=== PATIENT | female | born 1940 | race Caucasian/White ===

== ENCOUNTER 2017-11-19 16:34 | Emergency (ER) | payer MEDICARE ==
[~2017-11-19] VITALS: Ht 170.2 cm; Wt 90.7 kg
[~2017-11-19 16:34] MED LIST: ALBU90OI6 INH; AMLO10 PO; BENA20 PO; BENAML10/40 PO; CARV6.25 PO; CHOL10002 PO; CYAN1000 PO; DULO30 PO; DULO60 PO; FISH1000 PO; FLUSAL2505 INH; FOLI1 PO; GLIM2 PO; HYDCHL25 PO; HYDMOR2 PO; HYDROCHLORATHIAZIDE; METF500 PO; NITR.4SL SL; OMEP20ER PO; OXYC10ER PO; OXYC15ER PO; OXYC20ER; OXYC5; OXYC5 PO; Oxycodone HCl20 M1 PO; PIOG30 PO; PRAV20 PO; PREG75 PO; Percocet 5-3251 EACH PO; [UNRECOGNIZED DRUG - OTHER]; [UNRECOGNIZED DRUG - REMARK]; [UNRECOGNIZED DRUG - REMARK]; [UNRECOGNIZED DRUG - REMARK]; [UNRECOGNIZED DRUG - REMARK]
[2017-11-19] MEDS ORDERED: ASPI81CH PO (16:41)
[2017-11-19] MEDS ORDERED: Lotensin40 MG PO (16:41)
[2017-11-19] MEDS ORDERED: AMLO5 PO (16:41)
[2017-11-19] MEDS ORDERED: CARV3.125 PO (16:42)
[2017-11-19] MEDS ORDERED: SITA50T2 PO (16:42)
[2017-11-19] MEDS ORDERED: ALBU90OI61 INH (16:42)
[2017-11-19] MEDS ORDERED: Magnesium500 M1 PO (16:42)
[2017-11-19] MEDS ORDERED: HYDCHL25 PO (16:42)
[2017-11-19] MEDS ORDERED: SERT50 PO (16:43)
[2017-11-19] MEDS ORDERED: CHOL10002 PO (16:46)
[2017-11-19] MEDS ORDERED: Voltaren100 GM TOP (16:47)
[2017-11-19] MEDS ORDERED: VITAMIN B122500 MC1 PO (16:47)
[2017-11-19] MEDS ORDERED: TOCO1000 PO (16:48)
[2017-11-19] MEDS ORDERED: FOLI400 PO (16:48)
[2017-11-19 17:24] LABS: BASOPHILS ABSOLUTE AUTO 0.04 K/mm3 (0.00-0.23); BASOPHILS PERCENT AUTO 1 % (0-2); EOSINOPHILS ABSOLUTE AUTO 0.19 K/mm3 (0.00-0.68); EOSINOPHILS PERCENT AUTO 3 % (0-6); Hematocrit 37.7 % (33.0-51.0); Hemoglobin 11.7 g/dL (11.5-16.0); IMMATURE GRAN ABSOLUTE AUTO 0.03 K/mm3 (0.00-0.10); IMMATURE GRAN PERCENT AUTO 0 % (0-1); LYMPHOCYTES ABSOLUTE AUTO 2.06 K/mm3 (0.84-5.20); LYMPHOCYTES PERCENT AUTO 28 % (21-46); MONOCYTES ABSOLUTE AUTO 0.65 K/mm3 (0.16-1.47); MONOCYTES PERCENT AUTO 9 % (4-13); Mean Corpuscular HGB 25.9 pg (26.0-34.0); Mean Corpuscular Volume 83 fL (80-100); Mean Platelet Volume 10.9 fL (9.1-12.4); NEUTROPHILS ABSOLUTE AUTO 4.47 K/mm3 (1.96-9.15); NEUTROPHILS PERCENT AUTO 60 % (41-73); Platelet Count 187 K/mm3 (150-400); RDW Coefficient Variation 14.4 % (11.7-14.2); RDW Standard Deviation 43.8 fL (35.1-46.3); Red Blood Cell Count 4.52 M/mm3 (3.80-5.20); White Blood Cell Count 7.44 K/mm3 (4.00-11.30)
[2017-11-19 17:48] LABS: Alanine Aminotransfer (ALT/SGP 43 U/L (12-78); Albumin, Blood 3.2 g/dL (3.4-5.0); Albumin/Globulin Ratio 0.8 (0.8-1.8); Alk Phos 67 U/L (50-136); Anion Gap 9 mmol/L (6-16); Aspartate Aminotrans (AST/SGOT 51 U/L (12-37); Bilirubin, Total 0.5 mg/dL (0.1-1.0); Blood Urea Nitrogen 21 mg/dL (8-24); Bun/Creatinine Ratio 26.2 (12.0-20.0); CO2, Blood 23 mmol/L (21-32); Calcium, Blood 8.7 mg/dL (8.5-10.1); Chloride, Blood 99 mmol/L (98-108); Globulin, Blood 3.8 g/dL (2.2-4.0); Glomerular Filtration Rate >60 (60-); Glucose, Blood 378 mg/dL (70-99); Potassium, Blood 4.2 mmol/L (3.5-5.5); Sodium, Blood 131 mmol/L (136-145)
[2017-11-19 18:37] LABS: Bicarbonate Venous 25.1 mmol/L (24.0-30.0); PCO2 Venous 43.4 mmHg (38-42); PO2 Venous 121 mmHg (38-42); pH Blood Venous 7.39 (7.34-7.37)
== END 2017-11-19 18:43 | disposition home or self-care (01) ==
LOC: ER 16:34
PROVIDERS: Emergency Medicine
DX: E11.65 Type 2 diabetes mellitus with hyperglycemia (principal); Z79.82 Long term (current) use of aspirin; Z79.899 Other long term (current) drug therapy
CPT/HCPCS: 36415; 80053; 82803; 82947; 83690; 85025; 93005; 93010; 99283; J7030

== ENCOUNTER → 2018-12-20 | Outpatient (CLI) | payer MEDICARE ==
[~2018-12-20] MED LIST changes: +ALBU90OI61 INH; +AMLO5 PO; +ASPI81CH PO; +CARV3.125 PO; +FOLI400 PO; +Lotensin40 MG PO; +Magnesium500 M1 PO; +SERT50 PO; +SITA50T2 PO; +TOCO1000 PO; +VITAMIN B122500 MC1 PO; +Voltaren100 GM TOP
[2018-12-20 12:50] LABS: Creatinine, Urine Random 56.9 mg/dL (27.00-270.00)
[2018-12-20 12:53] LABS: Microalb/Creat Ratio UR, Rand 32.162 mg/g (0.000-30.000); Microalbumin, Random Urine 18.3 mg/L (0.000-20.000)
== END | disposition home or self-care (01) ==
LOC: LAB 08:41 → LAB SHORT 08:41
PROVIDERS: Family Medicine
DX: E78.5 Hyperlipidemia, unspecified (principal); I10 Essential (primary) hypertension
CPT/HCPCS: 82043; 82570

== ENCOUNTER 2020-11-25 06:43 | Day surgery (SDC) | payer MEDICARE ==
[~2020-11-25] VITALS: Ht 170.2 cm; Wt 88.5 kg
[~2020-11-25 06:43] MED LIST changes: +Aspir 8181 MG PO; +META800 PO
[2020-11-25] MEDS ORDERED: GABA300 PO (07:41)
[2020-11-25] MEDS ORDERED: TRULICITY1.5 MG/0.1 (07:42)
[2020-11-25] MEDS ORDERED: ZOCOR20 MG PO (07:42)
[2020-11-25] MEDS ORDERED: JARDIANCE10 MG PO (07:42)
== END 2020-11-25 08:45 | disposition home or self-care (01) ==
LOC: ORSCSDS 06:43
PROVIDERS: Ophthalmology
PROC: 08RK3JZ Replacement of Left Lens with Synthetic Substitute, Percutaneous Approach (ICD-10-PCS; principal; 2020-11-25 08:00)
DX: H25.12 Age-related nuclear cataract, left eye (principal); I10 Essential (primary) hypertension; J44.9 Chronic obstructive pulmonary disease, unspecified; E11.9 Type 2 diabetes mellitus without complications; Z79.899 Other long term (current) drug therapy
CPT/HCPCS: 82947; A9270; J2001; J2250; J3010; J3301; J7040; V2632

== ENCOUNTER → 2022-03-09 | Outpatient (CLI) | payer MEDICARE ==
[~2022-03-09] MED LIST changes: +GABA300 PO; +JARDIANCE10 MG PO; +TRULICITY1.5 MG/0.1; +ZOCOR20 MG PO
== END | disposition home or self-care (01) ==
LOC: LAB 10:40 → LAB SHORT 10:40
DX: N76.0 Acute vaginitis (principal)
CPT/HCPCS: 87070; 87077; 87086; 87106; 87186; 87205

== ENCOUNTER 2022-10-17 12:56 | Day surgery (SDC) | payer MEDICARE ==
[~2022-10-17] VITALS: Ht 170.2 cm; Wt 80.2 kg
[2022-10-17] MEDS ORDERED: LOSA50 PO (13:41)
[2022-10-17] MEDS ORDERED: MAGCIT300 PO (13:41)
== END 2022-10-17 15:45 | disposition home or self-care (01) ==
LOC: ORSCSDS 12:56
PROVIDERS: Internal Medicine Gastroenterology
PROC: 0DBC8ZX Excision of Ileocecal Valve, Via Natural or Artificial Opening Endoscopic, Diagnostic (ICD-10-PCS; principal; 2022-10-17 14:15)
PROC: 0DBK8ZX Excision of Ascending Colon, Via Natural or Artificial Opening Endoscopic, Diagnostic (ICD-10-PCS; principal; 2022-10-17 14:15)
PROC: 0DBN8ZX Excision of Sigmoid Colon, Via Natural or Artificial Opening Endoscopic, Diagnostic (ICD-10-PCS; principal; 2022-10-17 14:15)
DX: Z12.11 Encounter for screening for malignant neoplasm of colon (principal); Z86.010 Personal history of colon polyps; D12.0 Benign neoplasm of cecum; D12.2 Benign neoplasm of ascending colon; D12.5 Benign neoplasm of sigmoid colon; N81.6 Rectocele; K57.30 Diverticulosis of large intestine without perforation or abscess without bleeding; K52.9 Noninfective gastroenteritis and colitis, unspecified; E11.9 Type 2 diabetes mellitus without complications; Z99.81 Dependence on supplemental oxygen; Z79.82 Long term (current) use of aspirin; Z79.84 Long term (current) use of oral hypoglycemic drugs; Z79.85 Long-term (current) use of injectable non-insulin antidiabetic drugs; Z79.899 Other long term (current) drug therapy
CPT/HCPCS: 82947; 88305; J2704; J7120

== ENCOUNTER 2024-01-08 05:48 | Emergency (ER) | payer MEDICARE ==
[~2024-01-08] VITALS: Ht 170.2 cm; Wt 81.7 kg
[2024-01-08 12:10] VITALS: BP 98/64
== END 2024-01-08 12:13 | disposition home or self-care (01) ==
LOC: ER 05:48
DX: S80.02XA Contusion of left knee, initial encounter (principal); M25.552 Pain in left hip; I10 Essential (primary) hypertension; E11.9 Type 2 diabetes mellitus without complications; W31.9XXA Contact with unspecified machinery, initial encounter; Z87.891 Personal history of nicotine dependence; Z79.82 Long term (current) use of aspirin; Z79.899 Other long term (current) drug therapy; Z88.8 Allergy status to other drugs, medicaments and biological substances

== ENCOUNTER → 2024-02-08 | Outpatient (CLI) | payer MEDICARE ==
[~2024-02-08] MED LIST changes: +LOSA50 PO; +MAGCIT300 PO; +Morphine Sulfat15 MG PO; +ONDA4ODT MM
[2024-02-08 16:43] LABS: Albumin, Blood 3.8 g/dL (3.4-5.0); Albumin/Globulin Ratio 0.9 (0.8-1.8); Bilirubin, Total 0.6 mg/dL (0.1-1.0); Bun/Creatinine Ratio 11.4 (12.0-20.0); Calcium, Blood 9.3 mg/dL (8.5-10.1); Creatinine, Blood 1.75 mg/dL (0.40-1.00); Globulin, Blood 4.2 g/dL (2.2-4.0); Potassium, Blood 3.8 mmol/L (3.5-5.5)
== END | disposition home or self-care (01) ==
LOC: LAB 15:46 → LAB SHORT 15:46
PROVIDERS: Family Medicine
DX: N17.9 Acute kidney failure, unspecified (principal); N18.9 Chronic kidney disease, unspecified
CPT/HCPCS: 36415; 80053

== ENCOUNTER → 2024-03-14 | Outpatient (CLI) | payer MEDICARE ==
[2024-03-14 08:55] LABS: Source, Urine Voided
[2024-03-14 09:56] LABS: Appearance, Urine Hazy (Clear); Bilirubin, Urine Neg (Neg); Blood, Urine Neg (Neg); Color, Urine Yellow (P-Yellow); Glucose Qualitative, Urine 4+ (Neg); Ketones, Urine Neg (Neg); Leukocyte Esterase, Urine Neg (Neg); Nitrite, Urine Neg (Neg); Protein, Urine Neg (Neg); Urobilinogen, Urine NORM (Normal)
[2024-03-14 10:08] LABS: Red Blood Cells, Urine 0-2 /hpf (0-2)
[2024-03-14 10:09] LABS: Bacteria Many /hpf; Squamous Epithelial Cells Rare /hpf (Few)
[2024-03-14 10:23] LABS: Creatinine, Urine Random 47.6 mg/dL (27.00-270.00); Protein, Urine Random 11.4 mg/dL (0.0-11.9); Protein/Creat Ratio, Ur Random 0.2
[2024-03-14 10:26] LABS: Microalb/Creat Ratio UR, Rand 14.412 mg/g (0.000-30.000); Microalbumin, Random Urine 6.86 mg/L (0.000-20.000)
== END ==
LOC: LAB SHORT 07:40 → LAB 07:40
PROVIDERS: Hospitalist
DX: N18.31 Chronic kidney disease, stage 3a (principal)
CPT/HCPCS: 81001; 82043; 82570; 84156; 87077; 87086; 87186

== ENCOUNTER 2024-04-14 17:02 | Emergency (ER) | payer MEDICARE ==
[~2024-04-14] VITALS: Ht 170.2 cm; Wt 72.6 kg
[2024-04-14] MEDS ORDERED: Diphth,Pertuss(Acell),Tet Vac 0.5 ML VIAL IM ONE (17:55)
[2024-04-14 19:56] VITALS: BP 191/86
== END 2024-04-14 20:07 | disposition home or self-care (01) ==
LOC: ER 17:02
DX: S01.01XA Laceration without foreign body of scalp, initial encounter (principal); E11.9 Type 2 diabetes mellitus without complications; I10 Essential (primary) hypertension; V29.99XA Rider (driver) (passenger) of other motorcycle injured in unspecified traffic accident, initial encounter; Z87.891 Personal history of nicotine dependence; Z79.899 Other long term (current) drug therapy; Z79.82 Long term (current) use of aspirin; Z88.8 Allergy status to other drugs, medicaments and biological substances
CPT/HCPCS: 12001; 70450; 71045; 72125; 72170; 73030; 90471; 90715; 99284-25

== ENCOUNTER 2024-04-23 09:17 | Emergency (ER) | payer MEDICARE ==
[~2024-04-23] VITALS: Ht 170.2 cm; Wt 72.6 kg
[2024-04-23 09:43] LABS: BASOPHILS ABSOLUTE AUTO 0.03 K/mm3 (0.00-0.23); BASOPHILS PERCENT AUTO 1 % (0-2); EOSINOPHILS ABSOLUTE AUTO 0.16 K/mm3 (0.00-0.68); EOSINOPHILS PERCENT AUTO 3 % (0-6); Hematocrit 41.6 % (33.0-51.0); Hemoglobin 13.3 g/dL (11.5-16.0); IMMATURE GRAN ABSOLUTE AUTO 0.01 K/mm3 (0.00-0.10); IMMATURE GRAN PERCENT AUTO 0 % (0-1); LYMPHOCYTES ABSOLUTE AUTO 1.69 K/mm3 (0.84-5.20); LYMPHOCYTES PERCENT AUTO 27 % (21-46); MONOCYTES ABSOLUTE AUTO 0.38 K/mm3 (0.16-1.47); MONOCYTES PERCENT AUTO 6 % (4-13); Mean Corpuscular HGB 28.4 pg (26.0-34.0); Mean Corpuscular Volume 89 fL (80-100); Mean Platelet Volume 10.3 fL (9.1-12.4); NEUTROPHILS ABSOLUTE AUTO 3.95 K/mm3 (1.96-9.15); NEUTROPHILS PERCENT AUTO 63 % (41-73); Platelet Count 208 K/mm3 (150-400); RDW Coefficient Variation 14.6 % (11.7-14.2); RDW Standard Deviation 46.9 fL (35.1-46.3); Red Blood Cell Count 4.69 M/mm3 (3.80-5.20); White Blood Cell Count 6.22 K/mm3 (4.00-11.30)
[2024-04-23 10:09] LABS: Albumin, Blood 3.1 g/dL (3.4-5.0); Bilirubin, Total 0.7 mg/dL (0.1-1.0); Bun/Creatinine Ratio 12.4 (12.0-20.0); Calcium, Blood 8.9 mg/dL (8.5-10.1); Creatinine, Blood 1.05 mg/dL (0.40-1.00); Globulin, Blood 3.1 g/dL (2.2-4.0); Potassium, Blood 4.2 mmol/L (3.5-5.5); Total Protein, Blood 6.2 g/dL (6.4-8.2)
[2024-04-23] MEDS ORDERED: Carvedilol 6.25 MG Tab PO ONE (11:45)
[2024-04-23] MEDS ORDERED: AmLODIPine Besylate 5 MG Tab PO ONE (11:45)
[2024-04-23] MEDS ORDERED: FentaNYL Citrate 50 MCG/ML 2 ML Injection IV ONE (11:45)
[2024-04-23] MEDS ORDERED: Metoprolol Tartrate 1 MG/ML 5 ML VIAL IV ONE (11:45)
[2024-04-23] MEDS ORDERED: Losartan Potassium 50 MG Tab PO ONE (11:45)
[2024-04-23] MEDS ORDERED: Ondansetron HCl 2 MG / ML 2ML Vial IV ONE (11:50)
[2024-04-23 12:53] VITALS: BP 178/78
== END 2024-04-23 13:16 | disposition home or self-care (01) ==
LOC: ER 09:17
PROVIDERS: Physician Assistant
DX: R51.9 Headache, unspecified (principal); E11.9 Type 2 diabetes mellitus without complications; I10 Essential (primary) hypertension; Z87.891 Personal history of nicotine dependence; Z79.899 Other long term (current) drug therapy; Z79.82 Long term (current) use of aspirin; Z88.8 Allergy status to other drugs, medicaments and biological substances
CPT/HCPCS: 70450; 80053; 85025; 93005; 93010; 96374; 96375; 99285-25; A9270; J2405; J3010

== ENCOUNTER 2024-04-26 08:34 | Emergency (ER) | payer MEDICARE ==
[~2024-04-26] VITALS: Ht 170.2 cm; Wt 72.6 kg
[2024-04-26] MEDS ORDERED: CloNIDine 0.1 MG Tab PO ONE (10:05)
[2024-04-26 10:13] LABS: BASOPHILS ABSOLUTE AUTO 0.04 K/mm3 (0.00-0.23); BASOPHILS PERCENT AUTO 1 % (0-2); EOSINOPHILS ABSOLUTE AUTO 0.11 K/mm3 (0.00-0.68); EOSINOPHILS PERCENT AUTO 2 % (0-6); Hemoglobin 12.3 g/dL (11.5-16.0); IMMATURE GRAN ABSOLUTE AUTO 0.02 K/mm3 (0.00-0.10); IMMATURE GRAN PERCENT AUTO 0 % (0-1); LYMPHOCYTES ABSOLUTE AUTO 1.28 K/mm3 (0.84-5.20); LYMPHOCYTES PERCENT AUTO 19 % (21-46); MONOCYTES ABSOLUTE AUTO 0.35 K/mm3 (0.16-1.47); MONOCYTES PERCENT AUTO 5 % (4-13); Mean Corpuscular HGB 28.7 pg (26.0-34.0); Mean Corpuscular HGB Conc 32.4 g/dL (31.5-36.5); Mean Corpuscular Volume 89 fL (80-100); Mean Platelet Volume 10.2 fL (9.1-12.4); NEUTROPHILS ABSOLUTE AUTO 4.86 K/mm3 (1.96-9.15); NEUTROPHILS PERCENT AUTO 73 % (41-73); Platelet Count 206 K/mm3 (150-400); RDW Coefficient Variation 14.4 % (11.7-14.2); RDW Standard Deviation 46.3 fL (35.1-46.3); Red Blood Cell Count 4.29 M/mm3 (3.80-5.20); White Blood Cell Count 6.66 K/mm3 (4.00-11.30)
[2024-04-26 10:36] LABS: Source, Urine Clean Catch
[2024-04-26 10:43] LABS: Appearance, Urine Clear (Clear); Bilirubin, Urine Neg (Neg); Blood, Urine Neg (Neg); Color, Urine Yellow (P-Yellow); Glucose Qualitative, Urine Neg (Neg); Ketones, Urine Neg (Neg); Leukocyte Esterase, Urine 1+ (Neg); Nitrite, Urine Pos (Neg); Protein, Urine Neg (Neg); Specific Gravity, Urine 1.015 (1.003-1.022); Urobilinogen, Urine NORM (Normal); pH, Urine 6.5 (5.0-8.0)
[2024-04-26] MEDS ORDERED: Ketorolac Tromethamine 15mg Vial IV ONE (10:45)
[2024-04-26 10:53] LABS: Bacteria Many /hpf; Red Blood Cells, Urine Not Seen /hpf (0-2); Squamous Epithelial Cells Not Seen /hpf (Few)
[2024-04-26 10:57] LABS: Albumin/Globulin Ratio 0.9 (0.8-1.8); Bilirubin, Total 0.6 mg/dL (0.1-1.0); Bun/Creatinine Ratio 15.3 (12.0-20.0); Calcium, Blood 8.9 mg/dL (8.5-10.1); Creatinine, Blood 0.98 mg/dL (0.40-1.00); Globulin, Blood 3.4 g/dL (2.2-4.0); Potassium, Blood 4.1 mmol/L (3.5-5.5); Total Protein, Blood 6.4 g/dL (6.4-8.2)
[2024-04-26] MEDS ORDERED: Trimethoprim/Sulfamethoxazole DS Tab PO ONE (11:35)
[2024-04-26 12:00] VITALS: BP 176/75
[2024-04-26] MEDS ORDERED: Bactrim Ds Tab1 EACH PO (12:02)
== END 2024-04-26 12:30 | disposition home or self-care (01) ==
LOC: ER 08:34
PROVIDERS: Physician Assistant
DX: I10 Essential (primary) hypertension (principal); N39.0 Urinary tract infection, site not specified; R51.9 Headache, unspecified; E11.9 Type 2 diabetes mellitus without complications; J44.9 Chronic obstructive pulmonary disease, unspecified; Z87.891 Personal history of nicotine dependence; Z79.82 Long term (current) use of aspirin; Z79.899 Other long term (current) drug therapy; Z88.8 Allergy status to other drugs, medicaments and biological substances
CPT/HCPCS: 80053; 81001; 85025; 87077; 87086; 87186; 96374; 99283-25; A9270; J1885

== ENCOUNTER → 2024-04-30 | Outpatient (CLI) | payer MEDICARE ==
[~2024-04-30] MED LIST changes: +Bactrim Ds Tab1 EACH PO
[2024-04-30 10:25] LABS: BASOPHILS ABSOLUTE AUTO 0.06 K/mm3 (0.00-0.23); BASOPHILS PERCENT AUTO 1 % (0-2); EOSINOPHILS ABSOLUTE AUTO 0.12 K/mm3 (0.00-0.68); EOSINOPHILS PERCENT AUTO 2 % (0-6); Hematocrit 38.6 % (33.0-51.0); Hemoglobin 12.8 g/dL (11.5-16.0); IMMATURE GRAN ABSOLUTE AUTO 0.01 K/mm3 (0.00-0.10); IMMATURE GRAN PERCENT AUTO 0 % (0-1); LYMPHOCYTES ABSOLUTE AUTO 1.23 K/mm3 (0.84-5.20); LYMPHOCYTES PERCENT AUTO 20 % (21-46); MONOCYTES ABSOLUTE AUTO 0.34 K/mm3 (0.16-1.47); MONOCYTES PERCENT AUTO 5 % (4-13); Mean Corpuscular HGB 28.4 pg (26.0-34.0); Mean Corpuscular HGB Conc 33.2 g/dL (31.5-36.5); Mean Corpuscular Volume 86 fL (80-100); Mean Platelet Volume 10.7 fL (9.1-12.4); NEUTROPHILS ABSOLUTE AUTO 4.56 K/mm3 (1.96-9.15); NEUTROPHILS PERCENT AUTO 72 % (41-73); Platelet Count 207 K/mm3 (150-400); RDW Coefficient Variation 14.6 % (11.7-14.2); RDW Standard Deviation 45.9 fL (35.1-46.3); White Blood Cell Count 6.32 K/mm3 (4.00-11.30)
[2024-04-30 11:25] LABS: Albumin, Blood 3.2 g/dL (3.4-5.0); Albumin/Globulin Ratio 0.9 (0.8-1.8); Bilirubin, Total 0.5 mg/dL (0.1-1.0); Bun/Creatinine Ratio 8.9 (12.0-20.0); Creatinine, Blood 1.58 mg/dL (0.40-1.00); Globulin, Blood 3.5 g/dL (2.2-4.0); Potassium, Blood 4.4 mmol/L (3.5-5.5); Total Protein, Blood 6.7 g/dL (6.4-8.2)
== END | disposition home or self-care (01) ==
LOC: LAB SHORT 10:22 → LAB 10:22
PROVIDERS: Family Medicine
DX: R39.9 Unspecified symptoms and signs involving the genitourinary system (principal)
CPT/HCPCS: 80053; 85025

== ENCOUNTER 2024-06-10 10:34 | Emergency (ER) | payer MEDICARE ==
[~2024-06-10] VITALS: Ht 170.2 cm; Wt 70.3 kg
[2024-06-10 10:49] VITALS: BP 177/91
[2024-06-10] MEDS ORDERED: TraMADol HCl 50 MG Tab PO ONE (11:40)
[2024-06-10] MEDS ORDERED: TRAM50 PO (12:38)
[2024-06-10] MEDS ORDERED: Voltaren100 GM TOP (12:38)
== END 2024-06-10 12:53 | disposition home or self-care (01) ==
LOC: ER 10:34
DX: M19.041 Primary osteoarthritis, right hand (principal); E11.9 Type 2 diabetes mellitus without complications; I10 Essential (primary) hypertension; J44.9 Chronic obstructive pulmonary disease, unspecified; Z87.891 Personal history of nicotine dependence; Z85.528 Personal history of other malignant neoplasm of kidney; Z90.5 Acquired absence of kidney; Z88.8 Allergy status to other drugs, medicaments and biological substances; Z79.82 Long term (current) use of aspirin; Z79.85 Long-term (current) use of injectable non-insulin antidiabetic drugs; Z79.899 Other long term (current) drug therapy
CPT/HCPCS: 73130; 99283-25; A9270

== ENCOUNTER 2024-10-05 16:44 | Emergency (ER) | payer MEDICARE ==
[~2024-10-05] VITALS: Ht 170.2 cm; Wt 65.8 kg
[~2024-10-05 16:44] MED LIST changes: +TRAM50 PO
[2024-10-05] MEDS ORDERED: Ketorolac Tromethamine 30mg Vial IM ONE (17:10)
[2024-10-05] MEDS ORDERED: FentaNYL Citrate 50 MCG/ML 2 ML Injection IV ONE (17:10)
[2024-10-05] MEDS ORDERED: ESCITALOPRAM OXA5 MG PO (17:14)
[2024-10-05] MEDS ORDERED: RX Prepack 6 Tabs Oxycodone 5mg UD ONE (18:05)
[2024-10-05] MEDS ORDERED: OXYC5 PO (18:09)
[2024-10-05] MEDS ORDERED: Morphine Sulfate 4 MG/1 ML Injection IV ONE (18:10)
[2024-10-05] MEDS ORDERED: NARCAN4 M1 (18:13)
[2024-10-05 18:15] VITALS: BP 159/75
== END 2024-10-05 18:45 | disposition home or self-care (01) ==
LOC: ER 16:44
DX: S42.211A Unspecified displaced fracture of surgical neck of right humerus, initial encounter for closed fracture (principal); E11.9 Type 2 diabetes mellitus without complications; I10 Essential (primary) hypertension; J44.9 Chronic obstructive pulmonary disease, unspecified; W01.0XXA Fall on same level from slipping, tripping and stumbling without subsequent striking against object, initial encounter; Z87.891 Personal history of nicotine dependence; Z79.899 Other long term (current) drug therapy; Z79.82 Long term (current) use of aspirin; Z88.8 Allergy status to other drugs, medicaments and biological substances
CPT/HCPCS: 73030; 73070; 96372-59; 96374-59; 96375; 99283-25; A9270; J1885; J2270; J3010

== ENCOUNTER 2024-10-12 12:49 | Emergency (ER) | payer MEDICARE ==
[~2024-10-12] VITALS: Ht 170.2 cm; Wt 65.8 kg
[~2024-10-12 12:49] MED LIST changes: +ESCITALOPRAM OXA5 MG PO; +NARCAN4 M1
[2024-10-12] MEDS ORDERED: Glycerin Adult Supp 1 EA PR ONE (16:35)
[2024-10-12] MEDS ORDERED: Magnesium Hydroxide Conc 10 ML UDC PO ONE (16:35)
[2024-10-12] MEDS ORDERED: DULCOLAX5 MG PO (16:44)
[2024-10-12] MEDS ORDERED: MIRALAX1714 PO (16:44)
[2024-10-12] MEDS ORDERED: Sod Phosphate/Sod Biphosphate 132 ML BTL PR ONE (17:50)
[2024-10-12 19:37] VITALS: BP 163/87
== END 2024-10-12 19:36 | disposition home or self-care (01) ==
LOC: ER 12:49
DX: K59.00 Constipation, unspecified (principal); J44.9 Chronic obstructive pulmonary disease, unspecified; E11.9 Type 2 diabetes mellitus without complications; I10 Essential (primary) hypertension; Z87.891 Personal history of nicotine dependence; Z86.73 Personal history of transient ischemic attack (TIA), and cerebral infarction without residual deficits; Z79.899 Other long term (current) drug therapy
CPT/HCPCS: 74018; A9270

== ENCOUNTER 2024-11-15 12:51 | Emergency (ER) | payer MEDICARE ==
[~2024-11-15] VITALS: Ht 170.2 cm; Wt 63.0 kg
[~2024-11-15 12:51] MED LIST changes: +DULCOLAX5 MG PO; +MIRALAX1714 PO
[2024-11-15 14:00] VITALS: BP 163/81
[2024-11-15 14:25] LABS: BASOPHILS ABSOLUTE AUTO 0.04 K/mm3 (0.00-0.23); BASOPHILS PERCENT AUTO 1 % (0-2); EOSINOPHILS ABSOLUTE AUTO 0.06 K/mm3 (0.00-0.68); EOSINOPHILS PERCENT AUTO 1 % (0-6); Hematocrit 38.8 % (33.0-51.0); Hemoglobin 12.9 g/dL (11.5-16.0); IMMATURE GRAN ABSOLUTE AUTO 0.03 K/mm3 (0.00-0.10); IMMATURE GRAN PERCENT AUTO 1 % (0-1); LYMPHOCYTES ABSOLUTE AUTO 1.49 K/mm3 (0.84-5.20); LYMPHOCYTES PERCENT AUTO 23 % (21-46); MONOCYTES PERCENT AUTO 6 % (4-13); Mean Corpuscular HGB 30.2 pg (26.0-34.0); Mean Corpuscular HGB Conc 33.2 g/dL (31.5-36.5); Mean Corpuscular Volume 91 fL (80-100); Mean Platelet Volume 11.1 fL (9.1-12.4); NEUTROPHILS ABSOLUTE AUTO 4.61 K/mm3 (1.96-9.15); NEUTROPHILS PERCENT AUTO 70 % (41-73); Platelet Count 161 K/mm3 (150-400); RDW Coefficient Variation 14.6 % (11.7-14.2); RDW Standard Deviation 48.4 fL (35.1-46.3); Red Blood Cell Count 4.27 M/mm3 (3.80-5.20); White Blood Cell Count 6.63 K/mm3 (4.00-11.30)
[2024-11-15 14:49] LABS: Albumin, Blood 2.9 g/dL (3.4-5.0); Bilirubin, Total 0.5 mg/dL (0.1-1.0); Bun/Creatinine Ratio 24.8 (12.0-20.0); Calcium, Blood 8.4 mg/dL (8.5-10.1); Creatinine, Blood 0.97 mg/dL (0.40-1.00); Globulin, Blood 2.9 g/dL (2.2-4.0); Potassium, Blood 4.1 mmol/L (3.5-5.5); Total Protein, Blood 5.8 g/dL (6.4-8.2)
== END 2024-11-15 15:36 | disposition home or self-care (01) ==
LOC: ER 12:51
PROVIDERS: Student in an Organized Health Care Education/Training Program
DX: R55 Syncope and collapse (principal); E11.9 Type 2 diabetes mellitus without complications; I10 Essential (primary) hypertension; J44.9 Chronic obstructive pulmonary disease, unspecified; Z87.891 Personal history of nicotine dependence
CPT/HCPCS: 80053; 84484; 85025; 93005; 93010; 99284-25